=== PATIENT | male | born 2000 | race Caucasian/White ===

== ENCOUNTER 2024-02-24 08:37 | Observation (INO) | payer OTHER, SELFPAY ==
[2024-02-24] VITALS (15 sets, daily range): BP systolic 122–163; BP diastolic 72–99; PULSE 71–90; RESP 12–18; TEMP 36.1–37; O2SAT 95–100; BMI 29.9
--- NOTE | 2024-02-24 | PATH_ITS ---
[facility] Accession Number: [id number] No. of containers..01 Tissue . 01 Material submitted: . appendix - APPENDIX . 01 Diagnosis: Appendix, appendectomy: - Acute suppurative appendicitis with serositis. - Negative for malignancy. TXN 02/26/2024 1129 Local . 01 Electronically signed: . Tawfechad Patel MD, Pathologist NPI- [id number] . 01 Gross description: . Received in formalin with two identifiers and appendix, is a greer vermiform appendix 5.4 cm in length by 0.9 cm in diameter with mesoappendix extending up to 2.5 cm. The serosa is greer and roughened with adherent material consistent with exudate. The margin is inked blue. The lumen is filled with a small amount of greer purulent material and averaging 0.2 cm in diameter. The lomeli are pink-greer and average 0.3 cm thick with no perforation or lesions identified. Biochemistry Technologist sections to include the margin, one-half of the bisected distal tip, and cross-sections are submitted in cassette A1. ([id number]) /KANCHAN 02/25/2024 0957 Local . 01 Pathologist provided ICD-10: K35.200 . 01 CPT . 618315 Specimen Comment: A courtesy copy of this report has been sent to [phone] Performed at: [address] [facility] [address], [place], [place] [id number] MD Cholo Huitron MD Phone: [phone]
--- NOTE | 2024-02-24 09:06 | ED.ABDPAIN ---
HPI - Abdominal Pain General Chief Complaint: Abdominal Pain Stated Complaint: abd pain Time Seen by Provider: 02/24/24 09:05 Source: patient, RN notes reviewed and old records reviewed Mode of arrival: Ambulatory Limitations: no limitations History of Present Illness HPI narrative: 23-year-old male on Lexapro no other reported medical history who presents with complaint of waking up at about 2:00 a.m. with right lower quadrant pain. States no back or flank pain. Was able to fall back asleep but woke up at 6 was still quite intense. States was very painful to have his felt on that area or to have anything push on it. Denies fevers. He has had some nausea but no vomiting. States he has not had a bowel movement about 24 hours but had normal bowel movement before with no black or bloody stool. He has sometimes had discomfort on that side with constipation but states never anything this intense. Patient denies any dysuria urgency frequency or hematuria. Patient did not take anything for pain at home he states the pain has improved at this time but is not gone. Patient states no daily medications except for Lexapro. Patient denies any prior surgeries. No known drug allergies. Denies tobacco, has alcohol 2 or 3 times weekly, denies any recreational drugs. Related Data Allergies Allergy/AdvReac Type Severity Reaction Status Date / Time No Known Drug Allergies Allergy Verified 02/24/24 08:44 Review of Systems Review of Systems ROS Unobtainable: All systems reviewed & are unremarkable except as noted in HPI and below Patient History Social History Smoking Status: Never smoker Smoking Status: Never smoker alcohol intake frequency: a few times a week Alcohol type: beer Substance Use Type: does not use Exam Narrative Exam Narrative: GENERAL: Alert and oriented x three, male in mild distress HEENT: Head normocephalic, atraumatic, EOMI, pupils reactive, face symmetric, moist mucous membranes NECK: Supple, full range of motion CARDIOVASCULAR: Regular rate and rhythm without murmurs, rubs or gallops. RESPIRATORY: Breath sounds equal bilaterally, no wheezes rales or rhonchi. ABDOMEN: Soft, positive for right lower quadrant tenderness. Normoactive bowel sounds all 4 quadrants. No guarding or rebound, rigidity, no mass : No CVA tenderness, bilaterally. EXTREMITIES: Normal range of motion, no clubbing or edema. Neurovascularly intact NEUROLOGICAL: Cranial nerves II through XII grossly intact. Moving all extremities SKIN: Warm, dry, no petechiae, no rashes or lesions. Initial Vital Signs Initial Vital Signs: Vital Signs Temperature 97.8 F 02/24/24 08:44 Pulse Rate 87 02/24/24 08:44 Respiratory Rate 18 02/24/24 08:44 Blood Pressure 138/82 02/24/24 08:44 Pulse Oximetry 97 02/24/24 08:44 Oxygen Delivery Method Room Air 02/24/24 08:44 Course Orders Ordered: ED Orders 02/24/24 09:10 Complete Blood Count AUTO DIFF Stat Comprehensive Metabolic Panel Stat Lipase Stat 02/24/24 09:33 CT abdomen pelvis w con Stat Ondansetron HCl (Ondansetron 4 Mg/2 Ml Inj) 4 mg IV NOW PRN PRN Reason: Nausea And Vomiting Last Admin: 02/24/24 10:30 Dose: 4 mg Discontinued Medications Piperacillin Sod/Tazobactam (Sod 4.5 gm/ Sodium Chloride) 100 mls @ 200 mls/hr IV NOW ONE Stop: 02/24/24 10:17 Last Admin: 02/24/24 10:30 Dose: 200 mls/hr Ondansetron HCl (Ondansetron 4 Mg Odt) 4 mg PO NOW PRN PRN Reason: Nausea And Vomiting Vital Signs Vital signs: Vital Signs - 8 hr 02/24/24 08:44 02/24/24 09:17 02/24/24 09:18 Temperature 97.8 F Pulse Rate 87 82 71 Respiratory Rate 18 Blood Pressure 138/82 Pulse Oximetry 97 98 99 Oxygen Delivery Method Room Air 02/24/24 09:18 Temperature Pulse Rate Respiratory Rate Blood Pressure 126/72 Pulse Oximetry Oxygen Delivery Method MDM - Abdominal Pain Lab Data 02/24/24 09:10 02/24/24 09:10 Labs: Lab Results 02/24/24 Range/Units 09:10 WBC 14.9 H (4.5-11.0) X10^3/uL RBC 5.15 (4.5-5.9) X10^6/uL Hgb 14.7 (13.5-17.5) g/dL Hct 43.9 (41-53) % MCV 85.2 (80-100) fL MCH 28.5 (26-34) PG MCHC 33.5 (30-36) % RDW 13.8 (11.6-14.8) % Plt Count 346 (150-400) X10^3/uL Neut % (Auto) 80.9 H (50-75) % Lymph % (Auto) 8.8 L (25-40) % [place] % (Auto) 9.3 (3-14) % Eos % (Auto) 0.7 L (2-4) % Baso % (Auto) 0.3 (0-2) % Neut # (Auto) 39180 H (6703-3558) /uL Lymph # (Auto) 1300 (8410-1816) /uL [place] # (Auto) 1400 H (0-900) /uL Eos # (Auto) 100 (0-450) /uL Baso # (Auto) 0 (0-100) /uL Sodium 137 (137-145) mmol/L Potassium 4.4 (3.4-5.1) mmol/L Chloride 103 (98-107) mmol/L Carbon Dioxide 27 (22-32) mmol/L BUN 18 (9-20) mg/dL Creatinine 0.91 (0.66-1.25) mg/dL Estimated GFR > 60 (>60) mL/min BUN/Creatinine Ratio 19.8 (6-22) Glucose 111 H (70-100) mg/dL Calcium 9.8 (8.4-10.2) mg/dL Total Bilirubin 0.9 (0.2-1.3) mg/dL AST 39 (17-59) IU/L ALT 46 (<50) IU/L Alkaline Phosphatase 77 (38-126) U/L Total Protein 7.6 (6.3-8.2) g/dL Albumin 4.6 (3.5-5.0) g/dL Globulin 3.0 (1.7-4.1) g/dL Albumin/Globulin Ratio 1.5 (1.0-2.8) Lipase 30 (23-300) U/L Point of care testing: Urine Dip Bedside Urine Glucose Negative Bedside Urine Bilirubin - Negative Bedside Urine Ketone - Negative Urine Specific [place] 1.015 Bedside Urine Occult Blood - Negative Bedside Urine pH 6.0 Bedside Urine Protein - Negative Bedside Urine Urobilinogen - Negative Bedside Urine Nitrite - Negative Bedside Urine Leukocytes - Negative Esterase Imaging Data CT scan - abdomen/pelvis: Radiologist's Impression: Jero Dickerson??23??M??2000 ? Allergy/Adv: No Known Drug Allergies Close Abdomen/Pelvis CT (Signed) Imtiaz Casarez - 02/24/24 Launch?[address] [address] [address] Scan Report Signed Patient: Jero Dickerson MR#: [id number] : 2000 Acct:[id number] Age/Sex: 23 / M Date of Service: 02/24/24 Loc: ED Accession Number: [id number] Procedure: CT abdomen pelvis w con Ordering Provider: Sara Tidwell D.O. PROCEDURE: CT ABDOMEN PELVIS W CON INDICATIONS: RLQ pain w/ palp but getting better, appy vs stone? TECHNIQUE: After the administration of intravenous contrast, axial sections acquired from the lung bases to the pubic symphysis. Coronal and sagittal reformats were performed. For radiation dose reduction, the following was used: automated exposure control, adjustment of mA and/or kV according to patient size. COMPARISON: None. FINDINGS: Image quality: Diagnostic. Lower Chest: No significant findings. ABDOMEN: Liver: No solid mass. Gallbladder: No radiopaque gallstones or wall thickening. Biliary ducts: No biliary dilation. Pancreas: No ductal dilation. Spleen: Size is within normal limits. Adrenal Glands: No adrenal nodules. Kidneys and Ureters: No hydronephrosis. No solid mass. No complex renal cystic lesion which requires follow up. Stomach and Bowel: Normal colonic caliber, without significant wall thickening. The appendix is dilated, measuring up to 1 centimeter. There is wall thickening and periappendiceal fat stranding. Normal enhancement the wall. Peritoneum: No abnormal intraperitoneal fluid. No free air. Ventral Wall: No significant ventral hernia. Abdominal Nodes: No retroperitoneal or mesenteric adenopathy by size criteria. Vessels: Aorta and inferior vena cava are normal in size. PELVIS: Pelvic Organs: Unremarkable. Bladder: No bladder wall thickening, accounting for underdistention. Pelvic Nodes: No enlarged lymph nodes. Miscellaneous: No inguinal hernias are seen. Bones: No aggressive osseous abnormality. IMPRESSION: Uncomplicated acute appendicitis. No evidence of perforation or abscess. Dictated by: Imtiaz Casarez M.D. on 02/24/2024 at 9:54 Approved by: Imtiaz Casarez M.D. on 02/24/2024 at 9:56 [facility] Narrative Medical decision making narrative: 23-year-old male with onset of right lower quadrant pain overnight, patient is [id number] tender on exam in the right lower quadrant. No flank pain. Patient states pain is somewhat improved at this time but notes pressure on the area is painful. Patient defers anything for pain. Labs show white count of 14.9 hemoglobin of 14.7 platelets of 346 neutrophils are 80%. Chemistries normal electrolytes, BUN 18 creatinine 0.91 glucose of 111 LFTs are negative lipase is 30. Urine is negative. CT abdomen pelvis shows acute uncomplicated appendicitis. Imaging shows appendix dilated measuring up to 1 cm wall thickening periappendiceal fat stranding normal enhancement of the wall. No evidence of perforation or abscess. Patient was covered with Zosyn. NPO. Patient has deferred anything for pain to this point. 1015: Dr. Heredia general surgery, left voicemail. 1030: Dr. Heredia called back would recommend appendectomy but patient prefers would offer IV antibiotics with admission overnight. Asked that we call back with patient's preference and plan for OR at 3:00 p.m. today with likely overnight stay. Spoke with patient he prefers for appendectomy. Discussed likely course of plan, patient admitted to Dr. Heredia. Discharge Plan Departure Patient Disposition: Admitted as Observation Clinical Impression: Acute appendicitis Admit Date/Time: 02/24/24 10:31 Admit Provider: Jeremias Heredia
[2024-02-24 09:26] LABS: Add Manual Diff / Slide Review NO; Basophils Absolute Auto 0 /uL (0-100); Basophils Percent Auto 0.3 % (0-2); Eosinophils Absolute Auto 100 /uL (0-450); Eosinophils Percent Auto 0.7 % (2-4); Hematocrit 43.9 % (41-53); Hemoglobin 14.7 g/dL (13.5-17.5); Lymphocytes Absolute Auto 1300 /uL (1100-4500); Lymphocytes Percent Auto 8.8 % (25-40); Mean Corpuscular HGB Conc 33.5 % (30-36); Mean Corpuscular Hemoglobin 28.5 PG (26-34); Mean Corpuscular Volume 85.2 fL (80-100); Monocytes Absolute Auto 1400 /uL (0-900); Monocytes Percent Auto 9.3 % (3-14); Neutrophils Absolute Auto 12000 /uL (1500-7000); Neutrophils Percent Auto 80.9 % (50-75); Platelet Count 346 X10^3/uL (150-400); Red Blood Cell Count 5.15 X10^6/uL (4.5-5.9); Red Cell Distribution Width 13.8 % (11.6-14.8); White Blood Cell Count 14.9 X10^3/uL (4.5-11.0)
--- NOTE | 2024-02-24 09:33 | DI.CT.S_ITS ---
PROCEDURE: CT ABDOMEN PELVIS W CON INDICATIONS: RLQ pain w/ palp but getting better, appy vs stone? TECHNIQUE: After the administration of intravenous contrast, axial sections acquired from the lung bases to the pubic symphysis. Coronal and sagittal reformats were performed. For radiation dose reduction, the following was used: automated exposure control, adjustment of mA and/or kV according to patient size. COMPARISON: None. FINDINGS: Image quality: Diagnostic. Lower Chest: No significant findings. ABDOMEN: Liver: No solid mass. Gallbladder: No radiopaque gallstones or wall thickening. Biliary ducts: No biliary dilation. Pancreas: No ductal dilation. Spleen: Size is within normal limits. Adrenal Glands: No adrenal nodules. Kidneys and Ureters: No hydronephrosis. No solid mass. No complex renal cystic lesion which requires follow up. Stomach and Bowel: Normal colonic caliber, without significant wall thickening. The appendix is dilated, measuring up to 1 centimeter. There is wall thickening and periappendiceal fat stranding. Normal enhancement the wall. Peritoneum: No abnormal intraperitoneal fluid. No free air. Ventral Wall: No significant ventral hernia. Abdominal Nodes: No retroperitoneal or mesenteric adenopathy by size criteria. Vessels: Aorta and inferior vena cava are normal in size. PELVIS: Pelvic Organs: Unremarkable. Bladder: No bladder wall thickening, accounting for underdistention. Pelvic Nodes: No enlarged lymph nodes. Miscellaneous: No inguinal hernias are seen. Bones: No aggressive osseous abnormality. IMPRESSION: Uncomplicated acute appendicitis. No evidence of perforation or abscess. Dictated by: Imtiaz Casarez M.D. on 02/24/2024 at 9:54 Approved by: Imtiaz Casarez M.D. on 02/24/2024 at 9:56
[2024-02-24 09:34] LABS: Alanine Aminotransferase 46 IU/L (<50); Albumin 4.6 g/dL (3.5-5.0); Albumin Globulin Ratio 1.5 (1.0-2.8); Alkaline Phosphatase 77 U/L (38-126); Aspartate Aminotransferase 39 IU/L (17-59); BUN Creatinine Ratio 19.8 (6-22); Bilirubin Total 0.9 mg/dL (0.2-1.3); Blood Urea Nitrogen 18 mg/dL (9-20); Calcium 9.8 mg/dL (8.4-10.2); Carbon Dioxide 27 mmol/L (22-32); Chloride 103 mmol/L (98-107); Estimated Glomerular Filt Rate > 60 mL/min (>60); Glucose 111 mg/dL (70-100); HEMOLYSIS < 15 (0-50); Lipase 30 U/L (23-300); Potassium 4.4 mmol/L (3.4-5.1); Sodium 137 mmol/L (137-145); Total Protein 7.6 g/dL (6.3-8.2)
[2024-02-24] MEDS: ONDANSETRON 4 MG/2 ML INJ IV (10:30)
[2024-02-24] MEDS: PIPERACILLIN/TAZO 4.5 GM in SODIUM CHLORIDE 0.9% 100 ML IV (10:30)
--- NOTE | 2024-02-24 15:39 | PM.HP.1 ---
History of Present Illness History of Present Illness Date Patient Seen: 02/24/24 Time Patient Seen: 15:39 Chief complaint: abd pain Narrative: Jeor is a 23 year old man who presented with right lower quadrant abdominal pain since early this morning. CT shows acute appendicitis. No prior surgery. [facility] Social History household members: none Smoking Status: Never smoker Meds Home Medications and Allergies Allergies Allergy/AdvReac Type Severity Reaction Status Date / Time No Known Drug Allergies Allergy Verified 02/24/24 08:44 Exam Vital Signs (past 8 hours): - 02/24/24 08:44 02/24/24 09:17 02/24/24 09:18 Temperature 97.8 F Pulse Rate 87 82 71 Respiratory Rate 18 Blood Pressure 138/82 Pulse Oximetry 97 98 99 Oxygen Delivery Method Room Air Oxygen Flow Rate 02/24/24 09:18 02/24/24 12:11 Temperature 98.0 F Pulse Rate 90 Respiratory Rate 18 Blood Pressure 126/72 123/80 Pulse Oximetry 98 Oxygen Delivery Method Oxygen Flow Rate 0 Oxygen Delivery Method Room Air Oxygen Flow Rate 0 Narrative Exam Narrative: Abdomen soft, no peritoneal findings Objective Labs 02/24/24 09:10 02/24/24 09:10 Labs: Laboratory Results - last 24 hr 02/24/24 09:10 WBC 14.9 H RBC 5.15 Hgb 14.7 Hct 43.9 MCV 85.2 MCH 28.5 MCHC 33.5 RDW 13.8 Plt Count 346 Neut % (Auto) 80.9 H Lymph % (Auto) 8.8 L [place] % (Auto) 9.3 Eos % (Auto) 0.7 L Baso % (Auto) 0.3 Neut # (Auto) 67325 H Lymph # (Auto) 1300 [place] # (Auto) 1400 H Eos # (Auto) 100 Baso # (Auto) 0 Sodium 137 Potassium 4.4 Chloride 103 Carbon Dioxide 27 BUN 18 Creatinine 0.91 Estimated GFR > 60 BUN/Creatinine Ratio 19.8 Glucose 111 H Calcium 9.8 Total Bilirubin 0.9 AST 39 ALT 46 Alkaline Phosphatase 77 Total Protein 7.6 Albumin 4.6 Globulin 3.0 Albumin/Globulin Ratio 1.5 Lipase 30 Assessment & Plan Assessment and plan (1) Acute appendicitis: Qualifiers: Acute appendicitis type: with localized peritonitis Appendicitis gangrene presence: without gangrene Appendicitis perforation presence: without perforation Appendicitis abscess presence: without abscess Qualified Code(s): K35.30 - Acute appendicitis with localized peritonitis, without perforation or gangrene Status: Acute Plan We discussed the risks, benefits and alternatives of laparoscopic appendectomy and he would like to proceed. Time-Based Coding :: [TOTAL MINUTES] spent with patient and on the chart (including review of chart, obtaining history, exam, reviewing outside data, placing orders, documenting exam and treatment plan, and counseling patient) on [DATE].
[2024-02-24] MEDS: LACTATED RINGERS 1,000 ML 42 ML IV (15:41)
--- NOTE | 2024-02-24 16:18 | SUR.OPER ---
Supine on padded OR bed, head on pillow, safety belt at thigh, left arm padded and tucked at side. Right arm secured on padded arm board <90 degrees abduction. Legs uncrossed. Padded footboard in place. Tape over blanket to secure lower legs.
[2024-02-24] MEDS: ACETAMINOPHEN IV 1,000 MG/100 ML VIAL 400 MG IV (16:28)
[2024-02-24] MEDS: BUPIVACAINE 0.5% W/ EPI (PF) 30 ML VIAL INJ (16:29)
--- NOTE | 2024-02-24 16:45 | PM.OP.1 ---
Operative Date/Time/Diagnoses Date of procedure: 02/24/24 Time of procedure: 16:46 Pre-op diagnosis: Acute appendicitis Post-op diagnosis: same Procedure & Clinicians Procedure: Laparoscopic appendectomy Same procedure as scheduled: Yes Surgeon: Jeremias Heredia Anesthesia Type: General Operative Notes Procedure in detail: The patient was on IV antibiotics. The patient was brought to the operating room, placed on the table in the supine position and general endotracheal anesthesia was induced. A time-out was performed. The abdomen was prepped and draped in the usual fashion. After injection of local anesthetic a 1 cm infraumbilical incision was created with a 15 blade scalpel. The umbilical stalk was grasped with a Angela clamp to elevate the abdominal wall. The infraumbilical midline fascia was cleared over 1 cm and the fascia was scored with cautery. The peritoneum was pierced with a Peon clamp. The Roseanne port was placed and the abdomen was insufflated to 15 mmHg. The camera was inserted and there was no evidence of any injury from the entry. Next, 5 mm ports were placed in the suprapubic and left lower quadrant positions under direct vision. The patient was placed in Trendelenburg with the right-side elevated. The terminal ileum was swept away from the cecum and the appendix was visualized. The appendix was inflamed and distended but not perforated and there was no evidence of gangrene. The mesoappendix was divided with the Power-seal. Two PDS Endoloops were placed at the base and a 3rd endoloop was placed about a centimeter distally and the appendix was divided sharply. The specimen was placed in a Endo-Catch bag. A small amount of fluid with suctioned from the base of the appendix and pelvis. The table was flattened and the terminal ileum and omentum were allowed to slide in over the appendiceal stump. Finally, the 5 mm ports were removed under direct vision. The pneumoperitoneum was released and the Roseanne port was removed followed by the Endo-Catch bag. Additional local was injected into the fascia and the infraumbilical incision was closed with 2 interrupted 2-0 Vicryl sutures. The skin incisions were closed with 4 Monocryl. Steri-Strips were applied followed by Band-Aids. EBL: 5 mL Specimen: Appendix Post-operative Condition: stable Disposition: PACU
--- NOTE | 2024-02-24 22:02 | PC.NURSE ---
pt a&o x4. vss. O2 sats 98% on room air. no edema. abdomen soft, mild tenderness. hypoactive bowel sounds x4. denies nausea. denies pain. 3 lap sites on abdomen covered with bandaids CDI. independent in room. bed in lowest position, call light within reach.
[2024-02-25 00:35] VITALS: BP 130/84; PULSE 88; RESP 18; TEMP 36.4; O2SAT 98
--- NOTE | 2024-02-25 10:33 | CM.DANOTE ---
DCP Assessment Note: Pt is a 23yo male, resident of [place], is admitted for appendicitis. Pt lives in a house alone, he is active duty [place]. Pt's Primary Care Provider is at [facility] and insurance is [employer]. Reviewed chart and team rounds for pt's medical status and initial discharge needs. DCP met w/patient at bedside; introduced self and role. Patient was found in bed, alert and oriented, cooperative with assessment. Pt confirmed living situation and good support in family who live in [place]. Pt expressed preference in discharging home when cleared. Pt did not identify any other needs for discharge, requesting that his discharge summary will note that he can take some time off from work for recovery. DCP discussed this with pt RN to relay to provider if possible. Plan: Anticipating discharge home with mother to transport. CM team will follow closely for coordination of discharge plans. CARRI Andres Discharge Planning/Care Management CM Discharge Assessment Start: 02/25/24 10:30 Freq: Status: Active Protocol: Document 02/25/24 10:30 MW (Rec: 02/25/24 10:32 MW [id number]) Discharge Planning Assessment Assigned Psych Assistant VARUN Aldana/Assigned Designee Name Mother Downing Contact Information [phone] Advance Directives? No History Provided By Patient,Medical Record Has Patient been admitted in last 30 No days? Prior Living Arrangements House Household Members none Type of transporation used prior to Drives own vehicle admit Independent with ADL's Yes Is patient alert and oriented? Yes Caregiver for Another No Barriers to Discharge No Discharge Plan Home Transportation Arrangement Mother in POV Referrals Initiated None needed Whiteboard Updated in Patient Room with Yes name and ext. # of Psych Assistant Comment [phone] Please Provide Date Initial DC 02/25/24 Assessment Was Performed Next Review Type Continued Stay Review
[2024-02-25] MEDS: ACETAMINOPHEN 325 MG TABLET 650 MG PO (12:37)
== END 2024-02-25 12:55 | disposition home or self-care (01) ==
LOC: ED 10:24 → AC 10:32
PROVIDERS: Admitting Provider Surgery; Emergency Provider Emergency Medicine; Referring Provider Emergency Medicine; Visit Provider Surgery
PROC: 0DTJ4ZZ Resection of Appendix, Percutaneous Endoscopic Approach (ICD-10-PCS; CPT 44970; principal; 2024-02-24 15:30)
DX: K35.890 Other acute appendicitis without perforation or gangrene (principal)
CPT/HCPCS: 44970; 36415; 74177; 80053; 81003; 83690; 85025; 96365; 96375; 99222; 99284; G0378; J0134; J0330; J1100; J1885; J2405; J2543; J2704; J3010; J3490; Q9967